=== PATIENT | male | born 1995 | race Two or more races ===

== ENCOUNTER → 2024-09-24 | Outpatient (CLI) | payer OTHER, SELFPAY ==
--- NOTE | 2024-09-24 10:49 | XR_ITS ---
EXAMINATION: Ankle, left 3 views . Technique: Ankle AP, oblique, lateral 3 views Date and time of exam: September 24, 2024 1104 hrs. Indications: Ankle pain beginning 8 months ago no trauma Findings: Normal bone density. No fracture or dislocation. No erosive or other significant arthritic change Impression: No fracture No erosive or other significant arthritic change
--- NOTE | 2024-09-24 10:49 | XR_ITS ---
Examination: Foot, left, 3 views Technique: AP, oblique, lateral views foot, 3 views Date and time of exam: September 24, 2024 1104 hrs. Indications: Chronic pain beginning 8 months ago. Findings: Adequate bone density. No fracture or dislocation No plantar posterior bony calcaneal spur No cortical bone destruction No opaque foreign body Impression: No fracture or erosive or other significant arthritic change
== END | disposition home or self-care (01) ==
PROVIDERS: Referring Provider Student in an Organized Health Care Education/Training Program; Visit Provider Student in an Organized Health Care Education/Training Program
DX: M25.572 Pain in left ankle and joints of left foot (principal); G89.29 Other chronic pain; M79.672 Pain in left foot
CPT/HCPCS: 73610; 73630